=== PATIENT | male | born 1995 | race Two or more races ===

== ENCOUNTER 2017-01-16 12:15 | Emergency (ER) | payer MEDICAID ==
--- NOTE | 2017-01-16 13:19 | XRAY Report ---
EXAM: CHEST RADIOGRAPHY EXAM DATE: 01/16/2017 12:58 PM. CLINICAL HISTORY: Shortness of breath, chest pain and cough. COMPARISON: Chest x-ray 06/19/2010. TECHNIQUE: 2 views. FINDINGS: Lungs/Pleura: No focal opacities evident. No pleural effusion. No pneumothorax. Normal volumes. Mediastinum: Heart and mediastinal contours are unremarkable. Other: None. IMPRESSION: Normal 2-view chest radiography. [facility] Referring Provider Line: [phone] SITE ID: [id number]
--- NOTE | 2017-01-16 14:21 | ED Physician Documentation ---
PD HPI URI - Stated complaint Stated Complaint: DIFFICULTY BREATHING - Chief complaint Chief Complaint: Resp - History obtained from History obtained from: Patient - History of Present Illness Timing - onset: How many weeks ago (1) Timing duration: Weeks (1) Timing details: Gradual onset Associated symptoms: Nasal congestion, Dry cough, Dyspnea. No: Fever, Swollen nodes, Chest pain Contributing factors: Sick contact, Travel, Immunocompromised Similar symptoms before: Has not had sx before Recently seen: Not recently seen Review of Systems Constitutional: denies: Fever, Chills Nose: denies: Rhinorrhea / runny nose, Congestion Throat: denies: Sore throat Respiratory: reports: Cough, Wheezing GI: denies: Vomiting, Diarrhea Skin: denies: Rash PD PAST MEDICAL HISTORY - Past Medical History Cardiovascular: None Respiratory: None - Past Surgical History Past Surgical History: No - Present Medications Home Medications: Ambulatory Orders Medication Instructions Recorded Confirmed Albuterol Sulfate [Proair Hfa 2 puffs IH QID #1 hfa.aer.ad 01/16/17 Inhaler] Dexamethasone [Decadron] 4 mg PO DAILY #5 tablet 01/16/17 Naproxen [Naprosyn] 500 mg PO BID #20 tablet 01/16/17 Tramadol HCl 50 mg PO Q6H PRN #20 tablet 01/16/17 - Allergies Allergies/Adverse Reactions: Allergies Allergy/AdvReac Type Severity Reaction Status Date / Time No Known Drug Allergies Allergy Verified 11/24/13 17:25 - Social History Does the pt smoke?: No Smoking Status: Former smoker Does the pt drink ETOH?: No Does the pt have substance abuse?: No - Immunizations Immunizations are current?: Yes - POLST Patient has POLST: No PD ED PE NORMAL - Vitals Vital signs reviewed: Yes - General General: Alert and oriented X 3, No acute distress, Well developed/nourished - HEENT HEENT: Ears normal, Moist mucous membranes, Pharynx benign - Neck Neck: Supple, no meningeal sign, No adenopathy - Cardiac Cardiac: RRR, No murmur - Respiratory Respiratory: No: Clear bilaterally (tightness and some scattered wheezing) Results - Vitals Vitals: Oxygen O2 Source Room air - Rads (name of study) chest Radiology: Prelim report reviewed, EMP read contemporaneously (normal) PD MEDICAL DECISION MAKING - ED course Complexity details: considered differential, d/w patient Departure - Departure Disposition: 01 Home, Self Care Clinical Impression: Bronchitis, allergic Qualifiers: Asthma severity: mild intermittent Asthma complication type: with acute exacerbation Qualified Code(s): J45.21 - Mild intermittent asthma with (acute) exacerbation Condition: Stable Record reviewed to determine appropriate education?: Yes Instructions: ED Bronchitis Asthmatic Follow-Up: MAYT CELAYA DO [Primary Care Provider] - Prescriptions: Dexamethasone [Decadron] 4 mg PO DAILY #5 tablet Naproxen [Naprosyn] 500 mg PO BID #20 tablet Albuterol Sulfate [Proair Hfa Inhaler] 2 puffs IH QID #1 hfa.aer.ad Tramadol HCl 50 mg PO Q6H PRN #20 tablet PRN Reason: Pain Comments: Drink lots of fluids. Decadron steroid for 5 more days. Albuterol inhaler 2 puffs 4 times daily for 7-10 days to reduce cough and improve breathing. Naproxen twice daily for pain, and add Tylenol or Tramadol as needed for pain. Recheck if not improved over the next several days to a week. Discharge Date/Time: 01/16/17 15:01
[2017-01-16] MEDS ORDERED: HYDROcod/ACETAM 5/325 MG TABLET PO STA (14:43)
[2017-01-16] MEDS ORDERED: DEXAMETHASONE 10 MG/ML VIAL PO STA (14:43)
[2017-01-16] MEDS ORDERED: IBUPROFEN 600 MG TABLET PO STA (14:43)
[2017-01-16] MEDS ORDERED: IBUPROFEN 600 MG TABLET PO ONE (14:49)
[2017-01-16] MEDS ORDERED: HYDROcod/ACETAM 5/325 MG TABLET ONE (14:49)
[2017-01-16] MEDS ORDERED: CHERRY SYRUP 10 ML UDC PO ONE (14:50)
[2017-01-16] MEDS ORDERED: DEXAMETHASONE 10 MG/ML VIAL ONE (14:50)
[2017-01-16 14:51] VITALS: BP 131/82
== END 2017-01-16 15:01 | disposition home or self-care (01) ==
LOC: ED 12:15
DX: J45.21 Mild intermittent asthma with (acute) exacerbation (principal); Z87.891 Personal history of nicotine dependence
CPT/HCPCS: 71020; 93005; 99283; 99284; A9270

== ENCOUNTER 2020-05-27 13:41 | Outpatient (CLI) | payer OTHER | END 2020-05-27 13:42 | disposition home or self-care (01) | LOC: COV 13:41 | PROVIDERS: ATTEND Family Medicine | DX: R50.9 Fever, unspecified (principal); R05 Cough; M79.10 Myalgia, unspecified site; R53.83 Other fatigue; R19.7 Diarrhea, unspecified; Z20.828 Contact with and (suspected) exposure to other viral communicable diseases ==

== ENCOUNTER 2023-12-26 11:12 | Emergency (ER) | payer MEDICAID, OTHER ==
[2023-12-26 11:46] VITALS: O2SAT 99
[2023-12-26] MEDS: KETOROLAC 30 MG/ML VIAL IM STA (12:26)
--- NOTE | 2023-12-26 12:33 | ED Physician Documentation ---
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 No: Twisting, Trauma, Anticoagulated, Cancer, IVDA Recently seen: Not recently seen - Additional information Additional information: Patient states he took a dose of Tylenol this morning without relief. Review of Systems Constitutional: denies: Fever, Chills Respiratory: denies: Cough GI: denies: Abdominal Pain, Nausea, Vomiting, Diarrhea : denies: Dysuria, Frequency, Hesitancy, Incontinent Skin: denies: Rash Musculoskeletal: denies: Neck pain Neurologic: denies: Focal weakness, Numbness, Headache PD PAST MEDICAL HISTORY - Past Medical History Past Medical History: Yes Cardiovascular: None Respiratory: None Neuro: None Endocrine/Autoimmune: Type 2 diabetes GI: GERD : None Psych: None Musculoskeletal: None Derm: None - Past Surgical History Past Surgical History: No - Present Medications Home Medications: Ambulatory Orders Medication Instructions Recorded Confirmed Cyclobenzaprine [Flexeril] 10 mg PO TID PRN #20 tablet 12/26/23 HYDROcod/ACETAM 5/325 [Vermilion 5/325] 1 - 2 ea PO Q6H PRN #10 tablet 12/26/23 - Allergies Allergies/Adverse Reactions: Allergies Allergy/AdvReac Type Severity Reaction Status Date / Time No Known Drug Allergies Allergy Verified 12/26/23 11:34 - Social History Does the pt smoke?: No Smoking Status: Former smoker Does the pt drink ETOH?: Yes Does the pt have substance abuse?: Yes Substance Use and Type: Marijuana - Immunizations Immunizations are current?: Yes - POLST Patient has POLST: No PD ED PE NORMAL - Vitals Vital signs reviewed: Yes - General General: Alert and oriented X 3, No acute distress - HEENT HEENT: Moist mucous membranes - Neck Neck: Supple, no meningeal sign - Cardiac Cardiac: RRR, Strong equal pulses - Respiratory Respiratory: No respiratory distress, Clear bilaterally - Abdomen Abdomen: Soft, Non tender, Non distended - Back Back: No spinal TTP, Other (No midline tenderness to palpation or percussion. No step-off or deformity. There is paraspinal spasm bilateral lower lumbar.) - Derm Derm: Warm and dry - Neuro Neuro: Alert and oriented X 3, No motor deficit, No sensory deficit, Other (Normal bilateral lower extremity patellar and ankle jerk reflexes. Normal great toe extension bilaterally. no saddle anesthesia) - Psych Psych: Normal mood, Normal affect Results - Vitals Vitals: Vital Signs - 24 hr 12/26/23 12/26/23 11:35 12:53 Temperature 36.7 C Heart Rate 78 72 Respiratory 16 18 Rate Blood Pressure 158/97 H 160/85 H O2 Saturation 99 99 Oxygen O2 Source Room air PD Medical Decision Making - ED course Complexity details: considered differential (No cauda equina, no spinal epidural abscess, no fracture, no aortic dissection or evidence of aneursym rupture), d/w patient ED course: Patient with atraumatic back pain, but does lift heavy objects at work. Likely strain. No evidence of cauda equina, epidural abscess. Does not use IV drugs. No fevers. No falls. No indication for radiographic imaging at this time. Will place on pain medication muscle relaxants for home and have him follow-up with his PCP for further care. Patient is driving today so was given Toradol in the emergency department. Patient counseled regarding signs and symptoms for which I believe and urgent re-evaluation would be necessary. Patient with good understanding of and agreement to plan and is comfortable going home at this time This document was made in part using voice recognition software. While efforts are made to proofread this document, sound alike and grammatical errors may occur. Departure - Departure Disposition: 01 Home, Self Care Clinical Impression: Back spasm Condition: Good Instructions: ED Spasm Back No Trauma Follow-Up: your,doctor in 1 week [Other] Primary/Walk In [place] [Provider Group] Walk In [facility] [Provider Group] Prescriptions: Cyclobenzaprine [Flexeril] 10 mg PO TID PRN #20 tablet PRN Reason: Spasms HYDROcod/ACETAM 5/325 [Vermilion 5/325] 1 - 2 ea PO Q6H PRN #10 tablet PRN Reason: Pain Comments: Your prescription was sent to [facility] in [place]. Please follow-up with your doctor for further care. Please gently stretch your back at home. You can also follow-up with one of the walk-in clinics if needed. I am prescribing a short course of narcotic pain medication for you. These are potentially dangerous and addictive medications that should be used carefully. These medications may constipate you. Take an txxm-zit-odhelsu stool softener (docusate) twice daily with plenty of water while taking these medications. If you go 24 hours without a bowel movement, take vbes-syy-[id number] miralax, per package instructions. Do not drink or drive while taking these medications. If you received narcotic or sedating medications while in the emergency department, do not drive for 24 hours. Store this medication in a safe, secure place and out of reach of children. It is a violation of federal law to give or sell this medication to another person or to use in a manner other than prescribed. The ED will not refill narcotic prescriptions, including prescriptions lost or stolen. To dispose of unwanted medications: 1. [facility] [address] in [place] has a medication drop box. They accept prescription medications (in pill form) Sunday through Sunday 9:00 a.m. to 5:00 p.m. 2. [facility] accepts prescription medications (in pill form only) for disposal year round. Call for more information. 3. Contact the [facility] for the next [facility] sponsored prescription drug collection event. , [phone], or [phone]; Discharge Date/Time: 12/26/23 12:53
[2023-12-26 12:56] VITALS: BP 160/85
== END 2023-12-26 12:53 | disposition home or self-care (01) ==
LOC: ED 11:12
DX: M62.830 Muscle spasm of back (principal); E11.9 Type 2 diabetes mellitus without complications
CPT/HCPCS: 96372; 99283